=== PATIENT | female | born 1940 | race Caucasian/White ===

== ENCOUNTER 2017-10-29 10:22 | Inpatient (IN) | payer MEDICARE, BC ==
[2017-10-29] MEDS ORDERED: Dextrose 5% in Water 1,000 ML IV PRN (12:31)
[2017-10-29] MEDS ORDERED: Dextrose 50% Abboject 50 ML SYRINGE SLOW IVP PRN (12:31)
[2017-10-29] MEDS ORDERED: hydrALAZINE 20 MG/ML VIAL SLOW IVP PRN (12:31)
[2017-10-29] MEDS ORDERED: Ondansetron ODT 4 MG TAB PO PRN (12:31)
[2017-10-29 12:40] LABS: #Eosinphils 0.2 thou/uL (0.0-0.7); #Lymphocytes 1.5 thou/uL (1.20-3.40); #Monocytes 0.7 thou/uL (0.11-0.59); #Neutrophils 5.7 thou/uL (1.40-6.50); %Basophils 0.4 % (0.0-1.0); %Eosinophils 2.1 % (0.0-10.0); %Lymphocytes 18.1 % (21.0-51.0); %Monocytes 8.1 % (0.0-10.0); %Neutrophils 71.3 % (42.0-75.0); Hemoglobin 13.2 g/dL (12.0-16.0); Mean Corpuscular HGB CONC 34.2 g/dL (32.0-36.0); Mean Corpuscular Hemoglobin 33.7 pg (27.0-31.0); Mean Corpuscular Volume 98.4 fl (81.0-99.0); Mean Platelet Volume 6.4 fL (7.4-10.4); Platelet Count 209 thou/uL (130-400); RBC Distribution Width 11.8 % (11.5-14.5); Red Blood Cell (RBC) Count 3.91 mill/uL (4.20-5.40)
[2017-10-29] MEDS ORDERED: Rib Fracture Protocol PO SCH (12:45)
--- NOTE | 2017-10-29 12:52 | CT ---
CT OF THE BRAIN WITHOUT CONTRAST: INDICATION: History of subarachnoid hemorrhage. History of fall. COMPARISON: None. FINDINGS: There is very subtle nodular thickening involving the posterior aspect of the falx cerebri near the v ertex of the frontal convexity on image 26 of series 2 measuring 2 mm. This can be seen with small s ubdural hematomas. No definite layered subarachnoid hemorrhage is evident within the suprasellar cis tern, interpeduncular cistern, or prepontine cistern. No subarachnoid hemorrhage is seen layered wit hin the sulci of both cerebral hemispheres. There is mild chronic small-vessel white matter ischemic change. No additional large hemorrhage is evident. There are some calcifications of the central as pect of the upper falx cerebri. No midline shift is present. The mastoid air cells are clear. Ther e is mucosal thickening within the maxillary sinuses bilaterally. IMPRESSION: 1. Small focal nodular thickening involving the posterior falx cerebri can be seen with a small subd ural hematoma. No subarachnoid hemorrhage is evident. Would recommend appropriate clinical and CT f ollowup. 2. No acute infarct or hydrocephalus is present. 3. Mild chronic small-vessel ischemic change. 4. Mild paranasal sinus disease. POS: [facility]
--- NOTE | 2017-10-29 13:04 | CON ---
ATTENDING PHYSICIAN: Dr. Leander Benavides HISTORY OF PRESENT ILLNESS: The patient is a 77-year-old female with a past medical history of supranuclear palsy and hypertension who presented to the emergency department in [place] after a mechanical fall when she was attempting to get up to go to the bathroom. Family reports they found her in the hallway and called EMS, which transported her to [facility] for further evaluation. A CT of the head, neck, thoracic, and chest were done which were notable for a very small subdural hematoma along the falx as well as a right scapular fracture. The patient was transferred to [facility] for a neurosurgical consult and further management. I am seeing the patient at the bedside. She is alert and oriented x4. She is complaining of some mild pain to the right scapula. She is weak throughout the extremities and has very slow speech. Family reports that this is unchanged/ baseline secondary to her supranuclear palsy. PAST MEDICAL HISTORY: Hypertension supranuclear palsy. PAST SURGICAL HISTORY: Hernia repair, cataract surgery. SOCIAL HISTORY: The patient lives at home with her with [employer] [facility]. She does not smoke, drink or use any drugs. ALLERGIES: The patient has no known drug allergies. REVIEW OF SYSTEMS: Per HPI. PHYSICAL EXAMINATION: VITAL SIGNS: Blood pressure is 138/80, respiration rate is 14, patient is 95% on room air, pulse is 76 beats per minute, temperature is 97.7. CONSTITUTIONAL: Awake, alert, in no acute distress. HEAD: Normocephalic, atraumatic. EYES: Pupils are equal, pinpoint and sluggish reactivity. ENT: [place], intact. Moist. Slow speech. NECK: Nontender to palpation. Free active range of motion. No meningismus or nuchal rigidity. RESPIRATORY: Regular respiration rate. Breathing comfortably. CARDIOVASCULAR: Regular rate and rhythm. BACK: Tender over the right upper scapular region. MUSCULOSKELETAL: Pain with any range of motion of the right upper extremity. Currently, her right arm is in a sling. NEUROLOGIC: The patient is alert and oriented x4. She has a GCS of 15. She has slow, but steady speech. ASSESSMENT AND PLAN: This patient has a very small subdural hematoma along the falx likely secondary to a recent fall. At this time no acute neurosurgical intervention is warranted; however, we will continue to monitor the patient closely and repeat head CT in the morning. Regarding management of her right scapular fracture she is being admitted to the Trauma Service and we will defer to their team. I have discussed the case with Dr. Benavides who is in agreement. MARY JANE
[2017-10-29 13:06] LABS: ALT (SGPT) 9 U/L (8-55); AST (SGOT) 14 U/L (5-34); Alkaline Phosphatase 46 U/L (40-150); Anion Gap 12 mmol/L (10-20); BUN (Urea Nitrogen) 15 mg/dL (9.8-20.1); Bilirubin, Total 0.7 mg/dL (0.2-1.2); Calc. Creatinine Clearance 0 mL/min (70-130); Calcium 9.1 mg/dL (7.8-10.44); Carbon Dioxide 25 mmol/L (23-31); Chloride 105 mmol/L (98-107); Estimated GFR-MDRD 74; Globulin 2.3 g/dL (2.4-3.5); Glucose 109 mg/dL (83-110); Potassium 3.8 mmol/L (3.5-5.1); Protein, Total 6.3 g/dL (6.0-8.3); Sodium 138 mmol/L (136-145)
[2017-10-29] MEDS ORDERED: Cyclobenzaprine 10 MG TAB PO PRN (13:15)
[2017-10-29] MEDS ORDERED: Ibuprofen 600 MG TAB PO SCH (14:00)
--- NOTE | 2017-10-29 14:11 | HP ---
REQUESTING PHYSICIAN: Dr. Steve Saldana ADMITTING PHYSICIAN: Dr. Armando Joyce CONSULTANTS: Jennifer Montelongo PA-C DATE OF ADMISSION: 10/29/2017 CHIEF COMPLAINT: Transfer from [facility] for a scapular fracture and subdural hemat laura. HISTORY OF PRESENT ILLNESS: The patient is a 77-year-old female who was transferred from the ED at [facility] after suffering a ground level fall coming out of the bathroom this morning . She has a history of progressive supranuclear palsy and hypertension. She takes 81 mg aspirin jorden ly, but is not on any other anticoagulants. She reportedly is able to walk on her own at home with a walker. The fall was unwitnessed and the patient is unsure what she hit her head on. Imaging sent over from the ED at [facility] on a disk showed that she had a right scapular fracture as well a s a subdural hematoma. Neurosurgery was consulted and Trauma Services is asked to admit. This is a level 2 activation. PAST MEDICAL HISTORY: Hypertension, hyperlipidemia, and progressive supranuclear palsy. SOCIAL HISTORY: The patient has 3 children, two living. She does not smoke, drink alcohol, or do dr naranjo. PAST SURGICAL HISTORY: The patient reports cataract surgery 2 years ago, umbilical hernia repair 20 years ago. ALLERGIES: The patient reports no known drug allergies. FAMILY HISTORY: Mother's history is significant for hypertension. Father's history is significant f or coronary artery disease. He of [place] at 67. REVIEW OF SYSTEMS: A 10 point review of systems was negative except for the followin. Back pain in the area of the right scapula. 2. The patient has a history of dizziness. PHYSICAL EXAMINATION: VITAL SIGNS: BP 145/80, pulse 70, respirations 17, O2 sat 93% on room air. GENERAL: The patient is an elderly adult female lying in bed in some amount of distress with pain si gn such as grimacing and wincing. She has a sling over her right shoulder. HEENT: Head; normocephalic and atraumatic. EYES: Pupils are pinpoint, approximately 1.5-2 mm, but equal. Her extraocular movements are intact. Ears her external auditory canals are atraumatic and without discharge. Nose: Her nares are paten t. No blood or discharge. Mouth atraumatic. NECK: Trachea is midline. She has no tenderness. No bruits. RESPIRATORY: Her lungs are clear to auscultation bilaterally with normal effort. CARDIOVASCULAR: She has a regular rate and rhythm. Normal S1 and S2. No murmurs, gallops or rubs. Distal pulses 2+ bilaterally. ABDOMEN: Soft, obese, but nontender. Normal bowel sounds. EXTREMITIES: She is neurovascularly intact x4. She has no dependent edema. SKIN: Warm and dry without cyanosis. BACK: She has tenderness with palpation over the right scapula. No soft tissue abnormalities apprec iated. NEUROLOGIC: Her cranial nerves II-XII are grossly intact. She has no lateralizing signs. Her GCS i s 15. LABORATORY DATA: WBC is 8.0, hemoglobin 13.2, hematocrit 38.5, platelets 209. Chemistry: Sodium 13 8, potassium 3.8, chloride 105, bicarbonate 25, BUN 15, creatinine 0.76, glucose 109. Liver panel: Total bilirubin 0.7, AST 14, ALT 9, alkaline phosphatase 46, total protein 6.3, albumin 4.0, globulin 2.3, albumin globulin ratio 1.7. RADIOGRAPHIC FINDINGS: CT brain taken at [facility]. IMPRESSION: 1. Small nodular focal thickening involving the posterior fossa cerebri can be seen with a small sub dural hematoma. No subarachnoid hemorrhage is evident. Would recommend appropriate clinical and CT followup. 2. No acute infarct or hydrocephalus present. 3. Mild chronic small vessel ischemic change. 4. Mild paranasal sinus disease. Shoulder x-ray and brain CT taken at [facility] show a right scapular fracture and a small subdural hematoma. ASSESSMENT AND PLAN: 1. Status post ground level fall. 2. Subdural hematoma. 3. Right scapular fracture. 4. History of progressive supranuclear palsy. 5. History of hypertension. 6. History of hyperlipidemia. PLAN: 1. The plan will be to admit the patient to the surgical floor for monitoring of hemodynamic status and cognitive function. Repeat CT scan in the morning. 2. The patient will be optimized for pain control, started on gastritis prophylaxis and DVT prophyla xis as appropriate. 3. Rehab screen. This patient was seen and examined along with Dr. Armanod Joyce who agrees with the assessment and pl an.
[2017-10-29] MEDS: Gabapentin 100 MG CAP PO SCH ×2 (15:09→20:54)
[2017-10-29 16:52] VITALS: BMI 25.7
[2017-10-29] MEDS: traMADol HCl 50 MG TAB PO SCH (17:53)
[2017-10-29] MEDS: Acetaminophen 500 MG TAB PO SCH (17:53)
--- NOTE | 2017-10-29 18:00 | CON ---
DATE OF CONSULTATION: 10/29/2017 HISTORY: We were asked by the trauma in the emergency room to see patient. Patient sustained a fall earlier this morning per . She was coming into the bedroom with her walker and got tangled u p and fell. She has some pain to her right shoulder scapular area and she does have a small fracture seen on CT. She also had a subdural hematoma that Neurosurgery seen her for. Patient's right upper extremity is currently in a sling. She is moving okay, still stiff and sore, but does not have a gr eat deal of pain in that area. PAST MEDICAL HISTORY: Hyperlipidemia, hypertension. SOCIAL HISTORY: Resides with her in the [facility]. No alcohol or nicotine products. SURGERIES: Cataracts, hernia. ALLERGIES: Denied. None. FAMILY HISTORY: Noncontributory. HOME MEDICATIONS: Labetalol, losartan, vitamin K and aspirin. REVIEW OF SYSTEMS: Patient is a little somnolent right now. Her present is at the bedside. She is moving all of her extremities fair, right upper extremity a little bit less than the rest of her extr emities due to pain, but she is able to raise up and shake my hand when I introduced myself. [employer] is a little bit weak compared to the left though. PHYSICAL EXAMINATION: GENERAL: Well-nourished female resting in bed in no acute distress. Speech is clear, answering simp le questions well. Face is symmetric, little bit of bruising seen to the right side of the face. EXTREMITIES: Upper extremities, equal size, shape symmetry. Normal bulk and tone. She has a little tenderness to palpation over the scapula, but it is mild. Moves both upper extremities okay. ASSESSMENT: 1. Fall with ensuing subdural hematoma. 2. Scapular fracture, nonsurgical. PLAN: We will get her set up in a sling. She can start work with physical therapy, occupational the rapy once cleared by Trauma and Neurosurgery. Follow up in 3-4 weeks, sooner if there are any proble ms or concerns. We will check in on her while she is still in the hospital. Walker Hassan PA-C for Chau Junior M.D.
[2017-10-29] MEDS: Labetalol 100 MG TAB PO SCH (20:54)
[2017-10-29] MEDS: Rivastigmine 9.5mg/24 Hour PATCH TOP SCH (20:55)
[2017-10-29] MEDS: Famotidine 20 MG TAB PO SCH (20:55)
[2017-10-30] MEDS: traMADol HCl 50 MG TAB PO SCH ×3 (00:45→06:32)
[2017-10-30] MEDS: Acetaminophen 500 MG TAB PO SCH ×6 (00:45→18:01)
[2017-10-30 06:11] LABS: #Eosinphils 0.2 thou/uL (0.0-0.7); #Lymphocytes 1.2 thou/uL (1.20-3.40); #Monocytes 0.5 thou/uL (0.11-0.59); %Basophils 0.4 % (0.0-1.0); %Eosinophils 2.6 % (0.0-10.0); %Lymphocytes 20.9 % (21.0-51.0); %Monocytes 8.1 % (0.0-10.0); Hemoglobin 12.5 g/dL (12.0-16.0); Mean Corpuscular HGB CONC 34.3 g/dL (32.0-36.0); Mean Corpuscular Hemoglobin 33.8 pg (27.0-31.0); Mean Corpuscular Volume 98.4 fl (81.0-99.0); Mean Platelet Volume 6.5 fL (7.4-10.4); Platelet Count 207 thou/uL (130-400); RBC Distribution Width 11.8 % (11.5-14.5); Red Blood Cell (RBC) Count 3.71 mill/uL (4.20-5.40); White Blood Cell (WBC) Count 5.9 thou/uL (4.8-10.8)
[2017-10-30 06:14] LABS: Anion Gap 12 mmol/L (10-20); BUN (Urea Nitrogen) 16 mg/dL (9.8-20.1); Calc. Creatinine Clearance 69 mL/min (70-130); Calcium 8.9 mg/dL (7.8-10.44); Carbon Dioxide 25 mmol/L (23-31); Chloride 103 mmol/L (98-107); Estimated GFR-MDRD 72; Glucose 109 mg/dL (83-110); Potassium 4.1 mmol/L (3.5-5.1); Sodium 136 mmol/L (136-145)
--- NOTE | 2017-10-30 07:46 | CT ---
HEAD CT WITHOUT CONTRAST: Date: 10-30-17 Comparison: 10-29-17 History: Re-evaluate subdural hematoma. Technique: Serial axial CT imaging obtained at 5 mm intervals from vertex through skull base without contrast. FINDINGS: There is mild mucosal thickening involving bilateral maxillary sinuses, left greater than right. No d isplaced calvarial fracture. No midline shift or mass effect. There is subtle focal thickening of the posterior falx. This may represent normal mild thickening of the falx. Miniscule subdural hematoma cannot be fully excluded. There has been no significant interva l change. IMPRESSION: Minimal posterior focal thickening of the falx cerebri. This could represent miniscule volume subdura l hematoma or simply represent thickening of the falx. POS: [facility]
[2017-10-30] MEDS: Losartan 25 MG TAB PO SCH (08:34)
[2017-10-30] MEDS: Famotidine 20 MG TAB PO SCH ×2 (08:35→21:49)
[2017-10-30] MEDS: Gabapentin 100 MG CAP PO SCH (08:35)
[2017-10-30] MEDS: Labetalol 100 MG TAB PO SCH ×2 (08:35→21:48)
[2017-10-30] MEDS ORDERED: Rivastigmine 9.5mg/24 Hour PATCH TOP SCH (09:00)
[2017-10-30] MEDS ORDERED: traMADol HCl 50 MG TAB PO PRN (10:29)
--- NOTE | 2017-10-30 15:49 | PRG ---
DATE OF SERVICE: 10/30/2017 ATTENDING PHYSICIAN: Armando Joyce D.O. SUBJECTIVE: The patient is a 77-year-old female who was admitted on 10/29/2017 with a small subdural hematoma and a right scapular fracture after suffering a ground level fall. She has a history of pr ogressive supranuclear palsy, which affects her balance. She was taking 81 mg aspirin prior to the a ccident. She was seen by Orthopedics and had her right arm put in a sling. CT of the brain shows th e subdural hematoma is improving. This morning on rounds, the patient is somewhat somnolent, but rep orts adequate pain control. She has no other complaints this morning. OBJECTIVE: VITAL SIGNS: BP 167/87, pulse 109, temperature 97.9, respirations 14, O2 sat 94% on room air. GENERAL APPEARANCE: The patient is an elderly adult female lying in bed in no acute distress. HEENT: She is normocephalic and atraumatic. Pupils are pinpoint approximately 2 mm. RESPIRATORY: Her lungs are clear to auscultation bilaterally with normal effort. CARDIOVASCULAR: She has regular rate and rhythm. Normal S1 and S2. No murmurs, gallops or rubs. ABDOMEN: Soft, obese, but nontender. Normal bowel sounds. EXTREMITIES: She is neurovascularly intact x4. NEUROLOGIC: Her GCS is 15 this morning. LABORATORY DATA: Hematology; WBC is 5.9, hemoglobin 12.5, hematocrit 36.5, platelets 207. Chemistry : Sodium 136, potassium 4.1, chloride 103, bicarbonate 25, BUN 16, creatinine 0.78, glucose 109, and calcium 8.9. RADIOGRAPHIC FINDINGS: Head CT without contrast, minimal posterior focal thickening of the falx cere sonam. This could represent meniscal volume subdural hematoma or simply represent thickening of the fa lx. ASSESSMENT: 1. Status post ground level fall. 2. Subdural hematoma, resolving. 3. Right scapular fracture. PLAN: 1. Schedule Tylenol 1000 mg q.6 hours. Discontinue tramadol 100 mg and add tramadol 50 mg, schedule d 50 mg p.r.n. in order to reduce somnolence. 2. The patient was unable to work with PT this morning due to somnolence and reported nausea. We wi ll continue to try to engage with PT in order to facilitate placement to rehab versus jail . 3. Case management is following and per discussion with family, options for jail facility in [place] are being considered. This patient was seen and examined along with Dr. Armando Joyce on rounds who aggress with assessment and plan.
[2017-10-30] MEDS: Rivastigmine 9.5mg/24 Hour PATCH TOP SCH (21:49)
[2017-10-31] MEDS: Acetaminophen 500 MG TAB PO SCH ×4 (00:19→18:52)
[2017-10-31] MEDS: Labetalol 100 MG TAB PO SCH ×2 (09:03→20:04)
[2017-10-31] MEDS: Famotidine 20 MG TAB PO SCH ×2 (09:03→20:04)
[2017-10-31] MEDS: Losartan 25 MG TAB PO SCH (09:03)
--- NOTE | 2017-10-31 17:05 | PRG ---
DATE OF SERVICE: 10/31/2017 ATTENDING PHYSICIAN: Dr. Armando Joyce. SUBJECTIVE: The patient is a 77-year-old female admitted on 10/29/2017 with a small subdural hematom a and right scapular fracture after suffering a ground level fall. She has her right arm in a sling per Orthopedics. The scapular fracture is nonoperative. A CT of the brain from a couple of days ago shows the subdural hematoma is nearly resolved. She has no complaints while on rounds this morning and is alert and conversational. OBJECTIVE: VITAL SIGNS: Blood pressure 146/76, pulse 74, temperature 98.3, respirations 16, O2 sat 93% on room air. GENERAL: She is an elderly adult female lying in bed, in no acute distress. HEENT: She is normocephalic and atraumatic. Pupils are pinpoint, approximately 2 mm. RESPIRATORY: Her lungs are clear to auscultation bilaterally with normal effort. CARDIOVASCULAR: She has a regular rate and rhythm. Normal S1 and S2. ABDOMEN: Soft, obese, but nontender. Normal bowel sounds. EXTREMITIES: She is neurovascularly intact x4. NEUROLOGIC: Her GCS is 15, this morning she is alert and oriented x3. LABORATORY DATA: There is no laboratory data reviewed today. RADIOGRAPHIC FINDINGS: There are no images to review today. ASSESSMENT: 1. Status post ground level fall. 2. Subdural hematoma, resolving. 3. Right scapular fracture. PLAN: 1. Continue pain control as ordered. The patient has adequate pain control on current regimen with minimal somnolence. 2. The patient will continue to work with PT and OT. We will likely discharge to care home [facility] tomorrow. The patient has expressed preference for [facility]. Case management is follow ing to assist with discharge planning. This patient was seen and examined along with Dr. Armando Joyce at rounds who agrees with the assessm ent and plan.
[2017-10-31] MEDS: Rivastigmine 9.5mg/24 Hour PATCH TOP SCH ×2 (20:04→20:09)
[2017-11-01] MEDS: Acetaminophen 500 MG TAB PO SCH ×3 (00:29→08:10)
[2017-11-01] MEDS: Rivastigmine 9.5mg/24 Hour PATCH TOP SCH (03:00)
[2017-11-01] MEDS ORDERED: Haloperidol Lactate 5 MG/ML VIAL IM SCH (03:45)
[2017-11-01] MEDS: Losartan 25 MG TAB PO SCH (08:10)
[2017-11-01] MEDS: Labetalol 100 MG TAB PO SCH (08:10)
[2017-11-01] MEDS: Famotidine 20 MG TAB PO SCH (08:10)
[2017-11-01 12:12] VITALS: BP 138/81; TEMP 97.7
--- NOTE | 2017-11-02 00:40 | DIS ---
DATE OF ADMISSION: 10/29/2017 DATE OF DISCHARGE: 11/01/2017 ADMITTING PHYSICIAN: Dr. Armando Joyce. DISCHARGING PHYSICIAN: Dr. Armando Joyce. CHIEF COMPLAINT: Transfer from [facility] for scapular fracture and subdural hematom a. HISTORY OF PRESENT ILLNESS: The patient is a 77-year-old female, who was transferred from the emerge ncy department at [facility] after suffering a ground level fall coming out of the [facility]. She has a history of progressive supranuclear palsy. She was evaluated and found to have a right scapular fracture as well as a small subdural hematoma. Neurosurgery was consulted and Trauma Service was asked to admit. Orthopedic Surgery was also consulted. Their recommendation was just we ar a sling for the right shoulder. Neurosurgery recommended a repeat CT scan the next day, which cristy wed a resolving small subdural hematoma. The patient was kept on the floor for optimization of pain control for rehab screening and for cognitive and neurological and monitoring. The patient was evalu ated and determined to be a good candidate for [facility]. She was discharged to [facility] in good condition on 11/01/2017. DISCHARGE MEDICATIONS: The patient was discharged with all of her inpatient medications. Her home i buprofen and aspirin were discontinued. ACTIVITY INSTRUCTIONS: Include activity as tolerated with orthopedic limitations including right arm sling for comfort. NOURISHMENT INSTRUCTIONS: The patient was discharged on a regular diet. THERAPY INSTRUCTIONS: The patient to receive occupational, physical therapy as well as speech therap y in [facility]. EQUIPMENT AND SUPPLIES: The patient was given an arm sling. FOLLOWUP INSTRUCTIONS: The patient was instructed to follow up with her primary care physician in 7 days. The patient also instructed to follow up with Dr. Chau Junior in 3-4 weeks. There w ere no recommendations for neurosurgical followup. This patient was seen and examined on rounds with Dr. Armando Joyce who agrees with this discharge pl
== END 2017-11-01 14:15 | DRG 86 ==
LOC: ERS 10:22 → SURG A 12:31
PROVIDERS: ADMIT Surgery; ATTEND Surgery
DX: S06.5X0A Traumatic subdural hemorrhage without loss of consciousness, initial encounter (principal); G23.1 Progressive supranuclear ophthalmoplegia [Steele-Richardson-Olszewski]; S42.101A Fracture of unspecified part of scapula, right shoulder, initial encounter for closed fracture; I10 Essential (primary) hypertension; E78.5 Hyperlipidemia, unspecified; Z79.82 Long term (current) use of aspirin; Z79.899 Other long term (current) drug therapy; W18.39XA Other fall on same level, initial encounter; Y92.018 Other place in single-family (private) house as the place of occurrence of the external cause
CPT/HCPCS: 36415; 70450; 80048; 80053; 85025; 94640; 94760; 96374; G0390; G8978-GP-CM; G8979-GP-CK; G8987-GO-CL; G8988-GO-CJ; J0360; J1630; J2270; J7620; Q0162